=== PATIENT | female | born 1985 | race Caucasian/White ===

== ENCOUNTER 2019-11-11 21:23 | Emergency (ER) | payer OTHER ==
[~2019-11-11] VITALS: Ht 162.6 cm; Wt 94.6 kg
--- NOTE | 2019-11-11 21:51 | PHYS DOC ---
Past Medical History Past Medical History: Anxiety Drug Use: None General Adult EDM: Chief Complaint: ANXIETY/PANIC ATTACK HPI: HPI: Patient is a 34 year old female presents with a 5-day history of intermittent anxiety attacks. Patient describes symptoms as feeling flushed having chest pain abdominal pain nausea vomiting diarrhea shortness of breath and cramping in her arms and legs. Patient is very anxious and thinking about the attacks makes the symptoms come on. Patient was seen at [place] [facility] 2 days ago and had a negative cardiac evaluation. Patient has had a mild cough and was recently treated for bronchitis to 3 weeks ago. Patient denies any fever Review of Systems: Review of Systems: Constitutional: Denies fever or chills. [] Eyes: Denies change in visual acuity. [] HENT: Denies nasal congestion or sore throat. [] Respiratory: Complains of mild cough and intermittent shortness of breath Cardiovascular: Complains of intermittent chest heaviness but no edema GI: Complains of intermittent abdominal pain nausea vomiting diarrhea : Denies dysuria. [] Musculoskeletal: Denies back pain or joint pain. [] Integument: Denies rash. [] Neurologic: Denies headache, focal weakness or sensory changes. [] Endocrine: Denies polyuria or polydipsia. [] Lymphatic: Denies swollen glands. [] Psychiatric: Denies depression or anxiety. [] Heart Score: HEART Score for Chest Pain: HEART Score for Chest Pain Response (Comments) Value History Slighlty/Non-Suspicious 0 Age < 45 0 Troponin < Normal Limit 0 Total 0 Risk Factors: Risk Factors: DM, Current or recent (<one month) smoker, HTN, HLP, family history of CAD, obesity. Risk Scores: Score 0 - 3: 2.5% MACE over next 6 weeks - Discharge Home Score 4 - 6: 20.3% MACE over next 6 weeks - Admit for Clinical Observation Score 7 - 10: 72.7% MACE over next 6 weeks - Early Invasive Strategies Physical Exam: PE: Constitutional: Well developed, well nourished, no acute distress, anxious HENT: Normocephalic, atraumatic, bilateral external ears normal, oropharynx moist, no oral exudates, nose normal. [] Eyes: PERRLA, EOMI, conjunctiva normal, no discharge. [] Neck: Normal range of motion, no tenderness, supple, no stridor. [] Cardiovascular:Heart rate regular rhythm, peripheral pulse intact, cap refill brisk Lungs & Thorax: Bilateral breath sounds clear, no respiratory distress Abdomen: Bowel sounds normal, soft, no tenderness, no masses, no pulsatile masses. [] Skin: Warm, dry, no erythema, no rash. [] Back: No tenderness, no CVA tenderness. [] Extremities: No tenderness, no cyanosis, no clubbing, ROM intact, no edema. [] Neurologic: Alert and oriented X 3, normal motor function, normal sensory function, no focal deficits noted. [] Psychologic: Anxious EKG: EKG: EKG interpreted by me normal sinus rhythm with a rate of 72 PACs normal axis normal intervals normal ST segments [] Radiology/Procedures: Radiology/Procedures: [] Course & Med Decision Making: Course & Med Decision Making Pertinent Labs and Imaging studies reviewed. (See chart for details) [] 34-year-old female presents with anxiety attack symptoms. EKG is unremarkable other than PACs. I reviewed her old records from [facility] and she had a negative cardiac evaluation. Patient will be treated with anti- anxiety medicines and follow-up with her primary physician. Pérez Disclaimer: Pérez Disclaimer: This electronic medical record was generated, in whole or in part, using a voice recognition dictation system. Departure Departure Impression: Primary Impression: Anxiety Additional Impression: Palpitations Disposition: 01 HOME, SELF-CARE Condition: STABLE Referrals: NO PCP (PCP) PA CALDERON MD 2-3 days Patient Instructions: Anxiety and Panic Attacks, Palpitations Additional Instructions: EMERGENCY DEPARTMENT GENERAL DISCHARGE INSTRUCTIONS THANK YOU for coming to [facility] Emergency Department (ED) today and trusting us with your care. We trust that you had a positive experience in our Emergency Department. If you wish to speak to the department Management you can contact the production department supervisor at . YOUR FOLLOW UP INSTRUCTIONS ARE FOLLOWS: Do you have a private doctor? If you do not have a private doctor, please ask for a resource list of physicians or clinics that may be able to assist you with follow up care. The Emergency Physician has interpreted your x-rays. The X-ray specialist will also review them. If there is a change in the findings you will be notified in 48 hours when at all possible. A lab test or lab culture may have been done, your results will be reviewed and you will be notified if you need a change in treatment. ADDITIONAL INSTRUCTIONS AND INFORMATION Your care today has been supervised by a physician who is specially trained in emergency care. Many problems require more than one evaluation for a complete diagnosis and treatment. We recommend that you schedule your follow up appointment as recommended to ensure complete treatment of your illness or injury. If you are unable to obtain follow up care and continue to have a problem, or if your condition worsens we recommend that you return to the ED. We are not able to safely determine your condition over the phone nor are we able to give sound medical advice over the phone. For these safety reasons, if you call for medical advice we will ask you to come to the ED for further evaluation If you have any questions regarding these discharge instructions please call the ED at . SAFETY INFORMATION In the interest of safety, wellness, and injury prevention; we encourage you to wear your seatbelt, if you smoke; quit smoking, and we encourage your family to use protective helmet for bicycling and other sporting events that present an increased risk for head injury. IF YOUR SYMPTOMS WORSEN OR NEW SYMPTOMS DEVELOP, OR YOU HAVE CONCERNS ABOUT YOUR CONDITION; OR IF YOUR CONDITION WORSENS WHILE YOU ARE WAITING FOR YOUR FOLLOW UP APPOINTMENT; EITHER CONTACT YOUR PRIMARY CARE DOCTOR, THE PHYSICIAN WHOSE NAME AND NUMBER YOU WERE Michael HARE, OR RETURN TO THE ED IMMEDIATELY. Scripts Lorazepam (ATIVAN) 1 Mg Tablet 1 MG PO TID for anxiety, #10 TAB Prov: ROSALVA GARCIA MD 11/11/19 Justicifation of Admission Dx: Justifications for Admission: Justification of Admission Dx: N/A ROSALVA GARCIA MD Nov 11, 2019 21:51
[2019-11-11] MEDS ORDERED: LORA-434 PO (22:22)
--- NOTE | 2019-11-11 22:45 | EKG ---
[facility] [address] [place] [address] Test Date: 2019-11-11 Test Time: 22:16:18 Pat Name: MEGAN GARCIA Department: Room: Gender: F Inspector Health Care Facilities: : 1985 Requested By: ROSALVA GARCIA Order Number: [id number] Reading MD: Measurements Intervals Rachel Rate: 72 P: 24 ND: 156 QRS: 17 QRSD: 76 T: 13 QT: 358 QTc: 393 Interpretive Statements SINUS RHYTHM ATRIAL PREMATURE COMPLEX(ES) OTHERWISE NORMAL ECG RI6.02 No previous ECG available for comparison
[2019-11-11 22:51] VITALS: BP 154/96
== END 2019-11-11 22:52 | disposition home or self-care (01) ==
LOC: ER 21:23
DX: F41.9 Anxiety disorder, unspecified (principal); R00.2 Palpitations; R07.89 Other chest pain; R11.2 Nausea with vomiting, unspecified; R06.02 Shortness of breath; R19.7 Diarrhea, unspecified
CPT/HCPCS: 93005; 99283

== ENCOUNTER 2020-06-25 12:53 | Emergency (ER) | payer OTHER ==
[~2020-06-25] VITALS: Ht 162.6 cm; Wt 90.0 kg
[~2020-06-25 12:53] MED LIST: LORA-434 PO
--- NOTE | 2020-06-25 13:52 | PHYS DOC ---
Past Medical History Past Medical History: Anxiety Past Surgical History: Cholecystectomy, , Tubal ligation Smoking Status: Never Smoker Alcohol Use: Rarely Drug Use: None General Adult EDM: Chief Complaint: ABDOMINAL PAIN HPI: HPI: Patient is a 34 year old female who presented to ER for evaluation of low abdominal pain for about 10 days. Patient denies any nausea vomiting. Patient complains of painful sexual intercourse. Patient denies any vaginal discharge. Patient said in April she had heavy long vaginal bleeding period. In May she bled for about 6 days. Patient went to see her doctor last week, had some blood work done, says she is anemic, has low IRON, on iron supplement. She is scheduled to see OB/YN on 07/12/20. Review of Systems: Review of Systems: Constitutional: Denies fever or chills. [] Eyes: Denies change in visual acuity. [] HENT: Denies nasal congestion or sore throat. [] Respiratory: Denies cough or shortness of breath. [] Cardiovascular: Denies chest pain or edema. [] GI: Positive for abdominal pain. : Denies dysuria. Positive for painful sexual intercourse. Musculoskeletal: Denies back pain or joint pain. [] Integument: Denies rash. [] Neurologic: Denies headache, focal weakness or sensory changes. [] Endocrine: Denies polyuria or polydipsia. [] Lymphatic: Denies swollen glands. [] Psychiatric: Denies depression or anxiety. [] Heart Score: C/O Chest Pain: N/A Risk Factors: Risk Factors: DM, Current or recent (<one month) smoker, HTN, HLP, family history of CAD, obesity. Risk Scores: Score 0 - 3: 2.5% MACE over next 6 weeks - Discharge Home Score 4 - 6: 20.3% MACE over next 6 weeks - Admit for Clinical Observation Score 7 - 10: 72.7% MACE over next 6 weeks - Early Invasive Strategies Allergies: Allergies: Allergies Coded Allergies Type Severity Reaction Last Updated Verified No Known Drug Allergies 11/11/19 No Physical Exam: PE: Constitutional: Well developed, well nourished, no acute distress, non-toxic appearance. [] HENT: Normocephalic, atraumatic, bilateral external ears normal, oropharynx moist, no oral exudates, nose normal. [] Eyes: PERRLA, EOMI, conjunctiva normal, no discharge. [] Neck: Normal range of motion, no tenderness, supple, no stridor. [] Cardiovascular:Heart rate regular rhythm, no murmur [] Lungs & Thorax: Bilateral breath sounds clear to auscultation [] Abdomen: Bowel sounds normal, soft, There is tenderness in suprapubic area, no masses, no pulsatile masses. [] Skin: Warm, dry, no erythema, no rash. [] Back: No tenderness, no CVA tenderness. [] Extremities: No tenderness, no cyanosis, no clubbing, ROM intact, no edema. [] Neurologic: Alert and oriented X 3, normal motor function, normal sensory function, no focal deficits noted. [] Psychologic: Affect normal, judgement normal, mood normal. [] Current Patient Data: Labs: Laboratory Tests Test 06/25/20 13:01 06/25/20 13:04 06/25/20 13:47 Urine Collection Type Unknown Urine Color Yellow Urine Clarity Clear Urine pH 5.5 Urine Specific [place] 1.020 Urine Protein Negative mg/dL Urine Glucose (UA) Negative mg/dL Urine Ketones (Stick) Negative mg/dL Urine Blood Trace Urine Nitrite Negative Urine Bilirubin Negative Urine Urobilinogen Dipstick 0.2 mg/dL Urine Leukocyte Esterase Negative Urine RBC 6-10 /HPF Urine WBC 1-4 /HPF Urine Squamous Epithelial Cells Few /LPF Urine Bacteria Few /HPF Urine Mucus Slight /LPF Bedside Urine HCG, Qualitative Hcg negative White Blood Count 10.2 x10^3/uL Red Blood Count 4.94 x10^6/uL Hemoglobin 12.5 g/dL Hematocrit 38.5 % Mean Corpuscular Volume 78 fL Mean Corpuscular Hemoglobin 25 pg Mean Corpuscular Hemoglobin Concent 33 g/dL Red Cell Distribution Width 15.1 % Platelet Count 248 x10^3/uL Neutrophils (%) (Auto) 70 % Lymphocytes (%) (Auto) 20 % Monocytes (%) (Auto) 7 % Eosinophils (%) (Auto) 2 % Basophils (%) (Auto) 1 % Neutrophils # (Auto) 7.1 x10^3/uL Lymphocytes # (Auto) 2.1 x10^3/uL Monocytes # (Auto) 0.7 x10^3/uL Eosinophils # (Auto) 0.2 x10^3/uL Basophils # (Auto) 0.1 x10^3/uL Sodium Level 139 mmol/L Potassium Level 3.9 mmol/L Chloride Level 106 mmol/L Carbon Dioxide Level 24 mmol/L Anion Gap 9 Blood Urea Nitrogen 11 mg/dL Creatinine 0.8 mg/dL Estimated GFR (Cockcroft-Gault) 82.1 BUN/Creatinine Ratio 14 Glucose Level 102 mg/dL Calcium Level 9.1 mg/dL Total Bilirubin 0.5 mg/dL Aspartate Amino Transf (AST/SGOT) 23 U/L Alanine Aminotransferase (ALT/SGPT) 32 U/L Alkaline Phosphatase 90 U/L Total Protein 7.3 g/dL Albumin 3.8 g/dL Albumin/Globulin Ratio 1.1 Lipase 47 U/L Laboratory Tests Test 06/25/20 13:04 POC Urine HCG, Qualitative Hcg negative (Negative) EKG: EKG: [] Radiology/Procedures: Radiology/Procedures: [][facility] [address] [place], [place] [id number] IMAGING REPORT Signed PATIENT: CHIQUITA GARCIAUNT: [id number] : 1985 LOCATION: ER AGE: 34 SEX: F EXAM STATUS: REG ER ORD. PHYSICIAN: HELENA JAY DO REASON: LEFT SIDE PELVIC PAIN; PAIN AFTER INTERCOURSE; VAG BLEEDING PROCEDURE: PELVIS W/TV Pelvic ultrasound performed transabdominally and transvaginally 06/25/2020. Reason for exam: Bleeding after intercourse. Scanning transabdominally shows poor bladder filling. The uterus is grossly normal. No free fluid is seen. Transvaginal scanning shows normal uterine size and shape. Endometrial thickness appears normal at about 3 mm. No fibroid is seen. The ovaries appear to have small follicles. There is a 1.4 cm cyst on the right. There is no separate pelvic mass or free fluid. IMPRESSION: No significant findings. Electronically signed by: Braulio Resendiz Jr., MD (06/25/2020 3:21 PM) [id number] DICTATED and SIGNED BY: BRAULIO RESENDIZ Jr, MD DATE: 06/25/20 [id number] 0 Course & Med Decision Making: Course & Med Decision Making Pertinent Labs and Imaging studies reviewed. (See chart for details) [] [place] Disclaimer: Dragon Disclaimer: This electronic medical record was generated, in whole or in part, using a voice recognition dictation system. Departure Departure Impression: Primary Impression: Pelvic pain Disposition: HOME / SELF CARE / HOMELESS Condition: STABLE Referrals: NO PCP (PCP) PLEASE FOLLOW UP WITH YOUR SAVE ALL OPERATOR DOCTOR SCHEDULED Patient Instructions: Pelvic Pain, Female Additional Instructions: Thank you for visiting our Emergency Department. We appreciate you trusting us with your care. If any additional problems come up don't hesitate to return to visit us. Please follow up with your primary care provider so they can plan additional care if needed and know about the problem that you had. If symptoms worsen come back to the Emergency Department. Any concerning symptoms that start such as chest pain, shortness of air, weakness or numbness on one side of the body, running high fevers or any other concerning symptoms return to the ER. Scripts Naproxen Sodium (ANAPROX DS) 550 Mg Tablet 1 TAB PO BID PRN for PAIN for 15 Days, #30 TAB 0 Refills Prov: HELENA JAY DO 06/25/20 HELENA JAY DO June 25, 2020 13:52
[2020-06-25 13:55] LABS: BILIRUBIN,URINE NEGATIVE (NEG); CLARITY,URINE CLEAR; COLOR,URINE YELLOW; NITRITE,URINE NEGATIVE (NEG); PH,URINE 5.5 (<5.0-8.0); PROTEIN,URINE NEGATIVE (NEG-TRACE); UROBILINOGEN,URINE 0.2 mg/dL (0.2 mg/dL)
[2020-06-25 14:01] LABS: BASO # 0.1 x10^3/uL (0.0-0.2); BASO % 1 % (0-3); EOS # 0.2 x10^3/uL (0.0-0.7); EOS % 2 % (0-3); HEMATOCRIT 38.5 % (36.0-47.0); HEMOGLOBIN 12.5 g/dL (12.0-15.5); LYMPH # 2.1 x10^3/uL (1.0-4.8); LYMPH % 20 % (24-48); MEAN CORPUSCULAR HEMOGLOBIN 25 pg (25-35); MEAN CORPUSCULAR HGB CONC 33 g/dL (31-37); MEAN CORPUSCULAR VOLUME 78 fL (79-100); MONO # 0.7 x10^3/uL (0.0-1.1); MONO % 7 % (0-9); NEUT # 7.1 x10^3/uL (1.8-7.7); NEUT % 70 % (31-73); PLATELET COUNT 248 x10^3/uL (140-400); RED BLOOD COUNT 4.94 x10^6/uL (3.50-5.40); RED CELL DISTRIBUTION WIDTH 15.1 % (11.5-14.5); WHITE BLOOD COUNT 10.2 x10^3/uL (4.0-11.0)
[2020-06-25 14:06] LABS: BACTERIA,URINE FEW /HPF (0-FEW)
[2020-06-25 14:11] LABS: CALCIUM 9.1 mg/dL (8.5-10.1); CREATININE 0.8 mg/dL (0.6-1.0); GFR 82.1; POTASSIUM 3.9 mmol/L (3.5-5.1)
[2020-06-25 14:13] LABS: ALBUMIN 3.8 g/dL (3.4-5.0); ALBUMIN/GLOBULIN RATIO 1.1 (1.0-1.7); TOTAL BILIRUBIN 0.5 mg/dL (0.2-1.0); TOTAL PROTEIN 7.3 g/dL (6.4-8.2)
--- NOTE | 2020-06-25 15:24 | RAD ---
Pelvic ultrasound performed transabdominally and transvaginally 06/25/2020. Reason for exam: Bleeding after intercourse. Scanning transabdominally shows poor bladder filling. The uterus is grossly normal. No free fluid is seen. Transvaginal scanning shows normal uterine size and shape. Endometrial thickness appears normal at ab out 3 mm. No fibroid is seen. The ovaries appear to have small follicles. There is a 1.4 cm cyst on the right. There is no separate pelvic mass or free fluid. IMPRESSION: No significant findings. Electronically signed by: Jeremy Resendiz Jr., MD (06/25/2020 3:21 PM) [id number]
[2020-06-25] MEDS ORDERED: NAPR-682 PO (16:24)
[2020-06-25 16:26] LABS: PREG TEST PT QUAL NEGATIVE (NEG)
[2020-06-25 16:36] VITALS: BP 166/115
== END 2020-06-25 16:40 | disposition home or self-care (01) ==
LOC: ER 12:53
DX: R10.2 Pelvic and perineal pain (principal); N93.9 Abnormal uterine and vaginal bleeding, unspecified; Z90.49 Acquired absence of other specified parts of digestive tract
CPT/HCPCS: 36415; 76830; 76856; 80053; 81001; 81025; 83690; 84703; 85025; 99285-25